=== PATIENT | male | born 1960 | race Caucasian/White ===

== ENCOUNTER 2016-06-06 11:33 | Emergency (ER) | payer MEDICAID ==
[~2016-06-06 11:33] MED LIST: ABILIFY10 M1 PO; ABILIFY2 M1; ADULT LOW DOSE81 M1 PO; ALLOPURINOL300 M1 PO; AUGMENTIN 875-1 EAC2 PO; BENADRYL25 M3 PO; BRILINTA90 M1 PO; CITALOPRAM HBR20 M1 PO; CITALOPRAM HBR40 M1 PO; COREG12.5 M1 PO; COREG25 M1 PO; COREG6.25 M1 PO; FLOMAX0.4 M1 PO; HYDRALAZINE HCL50 M1 PO; ISOSORBIDE MONO30 M4 PO; LIPITOR40 M1 PO; NORCO 5-325 TA1 EACH PO; NORVASC5 M2 PO; PANTOPRAZOLE SO40 M3 PO; PREDNISONE10 M1 PO; TRAMADOL HCL50 M2 PO; TRAZODONE HCL100 M1 PO; TYLENOL325 M2 PO; ZANTAC 7575 M1 PO; ZESTRIL2.5 M3 PO
[2016-06-06] MEDS ORDERED: NITROGLYCERIN0.4 M2 SL (11:57)
[2016-06-06] MEDS ORDERED: ISOSORBIDE MONO30 M4 PO (11:58)
[2016-06-06] MEDS ORDERED: PERCOCET 5-3251 EACH PO (12:36)
[2016-06-06] MEDS ORDERED: PREDNISONE20 M1 PO (12:36)
== END 2016-06-06 13:01 ==
LOC: EDMED 11:33
DX: M25.461 Effusion, right knee (principal); I25.10 Atherosclerotic heart disease of native coronary artery without angina pectoris; N18.9 Chronic kidney disease, unspecified; M10.9 Gout, unspecified; F17.200 Nicotine dependence, unspecified, uncomplicated; Z79.899 Other long term (current) drug therapy
CPT/HCPCS: J2270